=== PATIENT | male | born 1960 | race Caucasian/White ===

== ENCOUNTER 2016-08-13 18:36 | Emergency (ER) | payer BC ==
--- NOTE | 2016-08-13 19:26 | ER NURSING DOCUMENTATION ---
Nurse's Notes [facility] Name:Kwan Severino Age:56 yrs Sex:Male :1960 Arrival Date:08/13/2016 Time:18:36 Bed6 Private MD: Diagnosis:Acute Myofascial Strain Presentation: 08/13 18:44 Presenting complaint: Patient states: pain to right calf, achilles tendon after hiking, lb heard a "pop". no redness or swelling noted. Transition of care: patient was not received from another setting of care. 18:44 Acuity: GALI 4 lb 18:44 Method Of Arrival: Walk In lb 18:49 Notified ED Physician of Charlie Parrish notified. lb Triage Assessment: 18:46 General: Appears in no apparent distress, Behavior is appropriate for age, pleasant. lb Pain: Denies pain. Musculoskeletal: No deficits noted. Injury Description: no swelling or redness. Historical: - Allergies: No known drug Allergies; - PMHx: None; - PSHx: Tonsillectomy; - Tetanus: < 10 years. - Ebola Screening: : Patient denies exposure to infectious person. Patient denies travel to an Ebola-affected area in the 21 days before illness onset. . - Immunization history: Flu Vaccine >1 year. - Social history: Smoking status: Patient states was never smoker of tobacco. Patient uses alcohol but reports only rare drinking. - Code Status:: Full code. Screenin:49 Infectious Disease Risk None. Abuse screen: Denies threats or abuse. Denies injuries lb from another. Nutritional screening: No deficits noted. Assessment: 18:49 See Triage Assessment done by same RN. lb Vital Signs: 18:46 BP 120 / 65; Pulse 80; Resp 14; Temp 97.9; Pulse Ox 93% on R/A; Weight 68.04 kg; Height lb 5 ft. 9 in. (175.26 cm); Pain 0/10; 18:46 Body Mass Index 22.15 (68.04 kg, 175.26 cm) lb ED Course: 18:37 Patient arrived in ED. ma1 18:44 Rosemary Good is Primary Nurse. lb 18:45 Triage completed. lb 18:49 Valuables Remains with patient. lb 18:58 Juventino Guerra MD is Attending Physician. 19:25 Walking boot applied. lb Administered Medications: No medications were administered Outcome: 19:11 Discharge ordered by . christa 19:25 Discharged to home ambulatory. brenda 19:25 Condition: good 19:25 Discharge Assessment: Patient awake, alert and oriented x 3. No cognitive and/or functional deficits noted. Patient verbalized understanding of disposition instructions. 19:25 Instructed on discharge instructions, follow up and referral plans. [facility] 19:26 Patient left the ED. brenda 08/14 09:38 Discharge F/U Call: Unable to reach: non-working number st Signatures: Gladys Chavez, RN RN Juventino Dangelo MD MD jm Bollock, Lynda lb Addison, Melissa ma1
--- NOTE | 2016-08-13 19:26 | ER PHYSICIAN DOCUMENTATION ---
Physician Documentation [facility] Name:Kwan Severino Age:56 yrs Sex:Male :1960 Arrival Date:08/13/2016 Time:18:36 Bed6 Private MD: Juventino Rodriguez Disposition: 08/13/16 19:11 Discharged to Home/Self Care. Impression: Acute Myofascial Strain. - Condition is Good. - Discharge Instructions: Leg Injury - MUSCLE STRAIN, Extremity. - Medical Reconciliation form form. - Follow up: Private Physician; When: As needed; Reason: Continuance of care. - Problem is new. - Symptoms have improved. HPI: 08/13 20:44 This 56 yrs old Male presents to ER via Walk In with complaints of Leg Injury jm - RIGHT. 20:44 The patient presents with an injury, pain. The complaints affect the right calf. jm Context: walking up steps. . Onset: The symptom(s)/episode began/occurred just prior to arrival, today. Pt felt a pop and had pain in the R calf. . Historical: - Allergies: No known drug Allergies; - PMHx: None; - PSHx: Tonsillectomy; - Tetanus: < 10 years. - Ebola Screening: : Patient denies exposure to infectious person. Patient denies travel to an Ebola-affected area in the 21 days before illness onset. . - Immunization history: Flu Vaccine >1 year. - Social history: Smoking status: Patient states was never smoker of tobacco. Patient uses alcohol but reports only rare drinking. - Code Status:: Full code. ROS: 20:44 MS/extremity: Positive for injury or acute deformity, pain. jm 20:44 Skin: Negative for ecchymosis. Exam: 20:44 Constitutional: The patient appears in no acute distress, alert, awake. jm 20:44 Musculoskeletal/extremity: Extremities: grossly normal except: noted in the right calf: pain, ROM: full active range of motion, full passive range of motion, Tendon exam: specific tendon testing normal through active and passive range of motion Achilles is intact. . 20:47 Musculoskeletal/extremity: TTP of the calf. Vital Signs: 18:46 BP 120 / 65; Pulse 80; Resp 14; Temp 97.9; Pulse Ox 93% on R/A; Weight 68.04 kg; Height lb 5 ft. 9 in. (175.26 cm); Pain 0/10; 18:46 Body Mass Index 22.15 (68.04 kg, 175.26 cm) lb MDM: 18:59 Patient medically screened. christa 20:47 Differential diagnosis: strain. Data reviewed: vital signs, nurses notes, and as a jm result, I will discharge patient. Counseling: I had a detailed discussion with the patient and/or guardian regarding: the historical points, exam findings, and any diagnostic results supporting the discharge/admit diagnosis, the need for outpatient follow up, with the patient's primary care provider. ED course: . 08/13 19:11 Order name: Walking Boot; Complete Time: 19:19 christa Dispensed Medications: No medications were administered Signatures: Juventino Guerra MD MD jm Bollock, Lynda lb
== END 2016-08-13 19:26 | disposition home or self-care (01) ==
LOC: ER 18:36
DX: S86.911A Strain of unspecified muscle(s) and tendon(s) at lower leg level, right leg, initial encounter (principal); X50.0XXA Overexertion from strenuous movement or load, initial encounter; Y93.01 Activity, walking, marching and hiking
CPT/HCPCS: 99281